=== PATIENT | male | born 1970 | race Caucasian/White ===

== ENCOUNTER → 2022-01-15 | Outpatient (CLI) | payer OTHER | LOC: WCC 10:00 | DX: E11.622 Type 2 diabetes mellitus with other skin ulcer (principal); L89.314 Pressure ulcer of right buttock, stage 4; L89.323 Pressure ulcer of left buttock, stage 3; G82.20 Paraplegia, unspecified; Z93.3 Colostomy status; Z96.0 Presence of urogenital implants; Z87.891 Personal history of nicotine dependence; Z79.84 Long term (current) use of oral hypoglycemic drugs; Z79.899 Other long term (current) drug therapy ==

== ENCOUNTER → 2022-01-22 | Outpatient (CLI) | payer OTHER | END | disposition home or self-care (01) | LOC: WCC 07:51 | PROC: 0KBP0ZZ Excision of Left Hip Muscle, Open Approach (ICD-10-PCS; principal; 2022-01-22) | PROC: 0KBN0ZZ Excision of Right Hip Muscle, Open Approach (ICD-10-PCS; 2022-01-22) | DX: L89.323 Pressure ulcer of left buttock, stage 3 (principal); L89.313 Pressure ulcer of right buttock, stage 3; G82.20 Paraplegia, unspecified; E11.69 Type 2 diabetes mellitus with other specified complication; M86.9 Osteomyelitis, unspecified; E11.40 Type 2 diabetes mellitus with diabetic neuropathy, unspecified; Z79.4 Long term (current) use of insulin; Z79.84 Long term (current) use of oral hypoglycemic drugs; Z79.899 Other long term (current) drug therapy; Z93.3 Colostomy status; Z96.0 Presence of urogenital implants | CPT/HCPCS: 97605 ==

== ENCOUNTER → 2022-01-29 | Outpatient (CLI) | payer OTHER | END | disposition home or self-care (01) | LOC: WCC 07:50 | DX: L89.324 Pressure ulcer of left buttock, stage 4 (principal); L89.314 Pressure ulcer of right buttock, stage 4; G82.20 Paraplegia, unspecified; E11.9 Type 2 diabetes mellitus without complications; Z96.0 Presence of urogenital implants; Z93.3 Colostomy status; Z79.4 Long term (current) use of insulin; Z79.899 Other long term (current) drug therapy | CPT/HCPCS: 97605 ==

== ENCOUNTER → 2022-02-05 | Outpatient (CLI) | payer OTHER | LOC: WCC 07:31 | DX: L89.313 Pressure ulcer of right buttock, stage 3 (principal); L89.323 Pressure ulcer of left buttock, stage 3; E11.622 Type 2 diabetes mellitus with other skin ulcer; G82.20 Paraplegia, unspecified; E11.40 Type 2 diabetes mellitus with diabetic neuropathy, unspecified; Z79.4 Long term (current) use of insulin; Z93.3 Colostomy status; Z96.0 Presence of urogenital implants ==

== ENCOUNTER → 2022-02-12 | Outpatient (CLI) | payer OTHER | LOC: WCC 07:01 | DX: E11.622 Type 2 diabetes mellitus with other skin ulcer (principal); L89.324 Pressure ulcer of left buttock, stage 4; L89.314 Pressure ulcer of right buttock, stage 4; G82.20 Paraplegia, unspecified; Z93.3 Colostomy status; Z96.0 Presence of urogenital implants; Z79.4 Long term (current) use of insulin | CPT/HCPCS: 87070; 87077; 87186; 87205 ==

== ENCOUNTER → 2022-03-18 | Outpatient (CLI) | payer MEDICARE, OTHER | LOC: CT 12:53 | DX: L89.319 Pressure ulcer of right buttock, unspecified stage (principal); L89.329 Pressure ulcer of left buttock, unspecified stage; R93.7 Abnormal findings on diagnostic imaging of other parts of musculoskeletal system | CPT/HCPCS: 72193; 82565; 84520; Q9967 ==

== ENCOUNTER 2022-03-23 21:19 | Inpatient (IN) | payer MEDICARE, OTHER ==
[~2022-03-23] VITALS: Ht 177.8 cm; Wt 103.9 kg
[2022-03-23 23:45] LABS: HEMOGLOBIN 12.4 gm/dl (14.0-17.5); RED BLOOD COUNT 5.16 M/UL (4.20-5.50); WHITE BLOOD COUNT 6.7 K/UL (4.5-11.0)
[2022-03-24 00:11] LABS: BUN/CREATININE RATIO 16 (0-10)
[2022-03-24] MEDS ORDERED: GABAPENTIN800 MG PO (10:52)
[2022-03-24] MEDS ORDERED: BACLOFEN10 MG PO (10:53)
[2022-03-24] MEDS ORDERED: CYCLOBENZAPRINE10 MG PO (10:54)
[2022-03-24] MEDS ORDERED: LORATADINE10 MG PO (10:55)
[2022-03-24] MEDS ORDERED: VITAMIN D325 MCG PO (10:56)
[2022-03-24] MEDS ORDERED: CALCIUM CARBON600 M1 PO (10:57)
[2022-03-24] MEDS ORDERED: METFORMIN HCL500 MG PO (10:58)
[2022-03-24] MEDS ORDERED: METFORMIN HCL1000 MG PO (10:59)
[2022-03-24] MEDS ORDERED: NORTRIPTYLINE H25 MG PO (10:59)
[2022-03-24] MEDS ORDERED: DULOXETINE HCL60 MG PO (11:00)
[2022-03-24] MEDS ORDERED: MELATONIN10 M2 PO (11:02)
[2022-03-24] MEDS ORDERED: ABILIFY 2 MG TAB2 MG PO (11:02)
[2022-03-24] MEDS ORDERED: SERTRALINE HCL50 MG PO (11:03)
[2022-03-24] MEDS ORDERED: HYDROCODON-ACE1 EAC6 PO (11:04)
[2022-03-24] MEDS ORDERED: DIAZEPAM10 MG PO (11:05)
[2022-03-24] MEDS ORDERED: BASAGLAR K100 UNIT/1 SQ (11:06)
[2022-03-24] MEDS ORDERED: NOVOLOG FL100 UNIT/1 SQ (11:07)
[2022-03-24] MEDS ORDERED: IBU800 MG PO (11:08)
--- NOTE | 2022-03-24 14:19 | NUR ---
1419- NOTIFIED DR. VEGA OF PT REQUESTING LORTAB BE CHANGED TO PERCOCET. STATES HE WILL REVIEW HIS MEDICATION. NO NEW ORDERS AT THIS TIME.
[2022-03-25 08:50] LABS: HEMOGLOBIN 11.6 gm/dl (14.0-17.5); RED BLOOD COUNT 4.9 M/UL (4.20-5.50)
[2022-03-25 08:51] LABS: WHITE BLOOD COUNT 3.4 K/UL (4.5-11.0)
[2022-03-25 10:01] LABS: BUN/CREATININE RATIO 25 (0-10)
[2022-03-26 06:12] LABS: HEMOGLOBIN A1C 7.6 % (4.8-5.6)
[2022-03-26 09:07] LABS: HEMOGLOBIN 11.3 gm/dl (14.0-17.5); RED BLOOD COUNT 4.72 M/UL (4.20-5.50); WHITE BLOOD COUNT 3.7 K/UL (4.5-11.0)
[2022-03-26 09:34] LABS: BUN/CREATININE RATIO 32 (0-10)
[2022-03-27 05:51] LABS: RED BLOOD COUNT 4.59 M/UL (4.20-5.50); WHITE BLOOD COUNT 3.7 K/UL (4.5-11.0)
[2022-03-27 06:07] LABS: BUN/CREATININE RATIO 49 (0-10)
[2022-03-30] MEDS ORDERED: LEVOFLOXACIN500 MG PO (08:49)
[2022-03-30] MEDS ORDERED: DECADRON6 MG PO (08:49)
== END 2022-03-30 12:20 | disposition home or self-care (01) | DRG 871 ==
LOC: ER1 21:19 → CDU 03-24 01:22 → MED SURG 4 03-24 01:22
PROVIDERS: Family Medicine; Internal Medicine; ADMIT Internal Medicine
PROC: XW033H5 Introduction of Tocilizumab into Peripheral Vein, Percutaneous Approach, New Technology Group 5 (ICD-10-PCS; principal; 2022-03-24)
PROC: 3E0333Z Introduction of Anti-inflammatory into Peripheral Vein, Percutaneous Approach (ICD-10-PCS; 2022-03-24)
PROC: XW033E5 Introduction of Remdesivir Anti-infective into Peripheral Vein, Percutaneous Approach, New Technology Group 5 (ICD-10-PCS; 2022-03-24)
PROC: 8E0ZXY6 Isolation (ICD-10-PCS; 2022-03-24)
PROC: 5A0945A Assistance with Respiratory Ventilation, 24-96 Consecutive Hours, High Flow/Velocity Cannula (ICD-10-PCS; 2022-03-24)
DX: A41.89 Other specified sepsis (principal); J12.82 Pneumonia due to coronavirus disease 2019; U07.1 COVID-19; J96.01 Acute respiratory failure with hypoxia; J69.0 Pneumonitis due to inhalation of food and vomit; G82.20 Paraplegia, unspecified; L89.890 Pressure ulcer of other site, unstageable; I10 Essential (primary) hypertension; K59.09 Other constipation; R65.20 Severe sepsis without septic shock; G89.4 Chronic pain syndrome; N31.9 Neuromuscular dysfunction of bladder, unspecified; F41.9 Anxiety disorder, unspecified; E11.9 Type 2 diabetes mellitus without complications; Z79.4 Long term (current) use of insulin; Z93.3 Colostomy status; Z91.048 Other nonmedicinal substance allergy status; Z99.81 Dependence on supplemental oxygen
CPT/HCPCS: 0240U; 36415; 36600; 71045; 80048; 80053; 81001; 82803; 82962; 83036; 83605; 83735; 83880; 84100; 85025; 85610; 86140; 87040; 87077; 87086; 87186; 93005; 94640; 94664; 94760; 96374; 96375; 99285; J0248; J0692; J0696; J1100; J1650; J1885; J1956; J2270; J7030; M0249; Q0249; Q9967

== ENCOUNTER → 2022-04-09 | Outpatient (CLI) | payer MEDICARE, OTHER ==
[~2022-04-09] MED LIST: ABILIFY 2 MG TAB2 MG PO; BACLOFEN10 MG PO; BASAGLAR K100 UNIT/1 SQ; CALCIUM CARBON600 M1 PO; CYCLOBENZAPRINE10 MG PO; DECADRON6 MG PO; DIAZEPAM10 MG PO; DULOXETINE HCL60 MG PO; GABAPENTIN800 MG PO; HYDROCODON-ACE1 EAC6 PO; IBU800 MG PO; LEVOFLOXACIN500 MG PO; LORATADINE10 MG PO; MELATONIN10 M2 PO; METFORMIN HCL1000 MG PO; METFORMIN HCL500 MG PO; NORTRIPTYLINE H25 MG PO; NOVOLOG FL100 UNIT/1 SQ; SERTRALINE HCL50 MG PO; VITAMIN D325 MCG PO
== END | disposition home or self-care (01) ==
LOC: WCC 06:57
DX: L89.313 Pressure ulcer of right buttock, stage 3 (principal); L89.323 Pressure ulcer of left buttock, stage 3; E11.622 Type 2 diabetes mellitus with other skin ulcer; G82.20 Paraplegia, unspecified; Z93.3 Colostomy status; Z96.0 Presence of urogenital implants; Z79.4 Long term (current) use of insulin
CPT/HCPCS: 87070; 87077; 87186; 87205

== ENCOUNTER → 2022-05-14 | Outpatient (CLI) | payer MEDICARE, OTHER | LOC: WCC 07:15 | DX: E11.622 Type 2 diabetes mellitus with other skin ulcer (principal); L89.324 Pressure ulcer of left buttock, stage 4; L89.314 Pressure ulcer of right buttock, stage 4; G82.20 Paraplegia, unspecified; Z93.3 Colostomy status; Z96.0 Presence of urogenital implants; Z79.4 Long term (current) use of insulin; Z79.899 Other long term (current) drug therapy ==

== ENCOUNTER → 2022-05-28 | Outpatient (CLI) | payer MEDICARE, OTHER | END | disposition home or self-care (01) | LOC: WCC 07:25 | DX: L89.314 Pressure ulcer of right buttock, stage 4 (principal); L89.324 Pressure ulcer of left buttock, stage 4; E11.622 Type 2 diabetes mellitus with other skin ulcer; G82.20 Paraplegia, unspecified; Z93.3 Colostomy status; Z79.4 Long term (current) use of insulin; Z79.899 Other long term (current) drug therapy ==

== ENCOUNTER → 2022-06-18 | Outpatient (CLI) | payer MEDICARE, OTHER | LOC: WCC 07:53 | DX: E11.622 Type 2 diabetes mellitus with other skin ulcer (principal); L89.324 Pressure ulcer of left buttock, stage 4; L89.314 Pressure ulcer of right buttock, stage 4; G82.20 Paraplegia, unspecified; Z93.3 Colostomy status; Z96.0 Presence of urogenital implants; Z79.4 Long term (current) use of insulin ==